=== PATIENT | male | born 1980 | race Caucasian/White ===

== ENCOUNTER 2021-03-08 20:44 | Emergency (ER) | payer SELFPAY ==
[~2021-03-08] VITALS: Ht 195.6 cm; Wt 78.2 kg
[2021-03-08 20:57] VITALS: Ht 195.6 cm; Wt 78.2 kg
[2021-03-08] MEDS ORDERED: PENICILLIN V P500 MG PO (22:54)
[2021-03-08] MEDS ORDERED: ORAL ANALGESIC9 GM TOPICAL (22:54)
[2021-03-08] MEDS ORDERED: DICLOFENAC SODI50 MG PO (22:54)
[2021-03-08] MEDS ORDERED: ZOFRAN ODT4 MG/UDTAB PO (22:55)
[2021-03-08 23:35] VITALS: BP 145/79
== END 2021-03-08 23:44 | disposition home or self-care (01) ==
LOC: D.ER 20:44
DX: R51.9 Headache, unspecified (principal); K08.89 Other specified disorders of teeth and supporting structures